=== PATIENT | female | born 1985 | race Caucasian/White ===

== ENCOUNTER 2016-12-30 10:28 | Emergency (ER) | payer OTHER ==
[2016-12-30 10:37] VITALS: BP 108/80
[2016-12-30] MEDS ORDERED: AMOX/CLAV 875 MG/125 MG TABLET PO STA (10:54)
[2016-12-30] MEDS ORDERED: AMOX/CLAV 875 MG/125 MG TABLET PO ONE (10:56)
--- NOTE | 2016-12-30 10:57 | ED Physician Documentation ---
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 This occurred just prior to arrival. She is right-hand dominant. Her tetanus status is up to date, and the cats rabies status is up to date. Review of Systems Constitutional: denies: Fever Respiratory: denies: Dyspnea GI: denies: Nausea, Vomiting Skin: reports: Bite / sting Neurologic: denies: Focal weakness, Numbness PD PAST MEDICAL HISTORY - Past Medical History Past Medical History: No Endocrine/Autoimmune: None - Past Surgical History Past Surgical History: Yes Ortho: Other - Present Medications Home Medications: Ambulatory Orders Medication Instructions Recorded Confirmed Amox/Clav 500/125 [Augmentin] 1 each PO Q12H #10 tablet 12/30/16 - Allergies Allergies/Adverse Reactions: Allergies Allergy/AdvReac Type Severity Reaction Status Date / Time No Known Drug Allergies Allergy Verified 12/30/16 10:37 - Social History Does the pt smoke?: No Smoking Status: Never smoker Does the pt drink ETOH?: No Does the pt have substance abuse?: No - Immunizations Immunizations are current?: Yes - POLST Patient has POLST: No PD ED PE NORMAL - Vitals Vital signs reviewed: Yes (normal) - General General: Alert and oriented X 3, Well developed/nourished - HEENT HEENT: Atraumatic - Respiratory Respiratory: No respiratory distress - Derm Derm: No rash - Extremities Extremities: Other (2 puncture wounds are noted at the base of the ring finger on the left hand, between the fourth and fifth metacarpals. There is no swelling , and there is full range of motion of the PIP, PIP, and MCP joints against resistance. Distal neurovascular is intact.) - Neuro Neuro: Alert and oriented X 3, No motor deficit, No sensory deficit Results - Vitals Vitals: Oxygen O2 Source Room air PD MEDICAL DECISION MAKING - ED course Complexity details: considered differential, d/w patient, d/w family ED course: The patient's presentation is significant for cat bite puncture wound to the left hand. Imaging studies are not clinically indicated. Treatment in the emergency department included cleaning of the wound area, and administration of Augmentin one tablet orally. She is being discharged with prescription for Augmentin. I discussed with her and her the expected course of injury, prophylactic antibiotic treatment, outpatient followup, as well as potentially worrisome signs or symptoms that should prompt reevaluation in the emergency department. Departure - Departure Disposition: 01 Home, Self Care Clinical Impression: Cat bite involving extremity Condition: Stable Instructions: ED Bite Cat Follow-Up: BETSY Levy [Provider Group] Prescriptions: Amox/Clav 500/125 [Augmentin] 1 each PO Q12H #10 tablet Comments: Keep the wound clean, and apply antibiotic ointment daily. Take Augmentin twice daily as prescribed. Use a probiotic yogurt while on antibiotic therapy. You can use ibuprofen, up to 800 mg 3 times daily if needed for pain. Follow up with your primary physician or return to the emergency department if you develop any sign of infection, or otherwise worsening symptoms. Discharge Date/Time: 12/30/16 11:06
[2016-12-30] MEDS ORDERED: IBUPROFEN 800 MG TABLET PO ONE (11:01)
[2016-12-30] MEDS ORDERED: IBUPROFEN 800 MG TABLET PO STA (11:02)
== END 2016-12-30 11:06 | disposition home or self-care (01) ==
LOC: ED 10:28
DX: S61.452A Open bite of left hand, initial encounter (principal); W55.01XA Bitten by cat, initial encounter; Y93.K3 Activity, grooming and shearing an animal
CPT/HCPCS: 99283; A9270